=== PATIENT | female | born 1960 | race Hispanic/Latino ===

== ENCOUNTER → 2024-03-09 | Outpatient (REF) | payer MEDICARE | LOC: US 12:26 | PROVIDERS: ATTEND Urology | DX: N39.0 Urinary tract infection, site not specified (principal) | CPT/HCPCS: 74018; 76770; 76857 ==

== ENCOUNTER 2024-07-05 07:44 | Inpatient (IN) | payer MEDICARE ==
[2024-07-02 12:54] LABS: BASOPHILS % 0.7 % (0.0-1.0); EOSINOPHILS # (AUTO) 0.1 (0.0-0.4); EOSINOPHILS % 1.2 % (0.0-6.0); HEMATOCRIT 45.8 % (34.2-44.1); HEMOGLOBIN 15.5 g/dL (12.0-16.0); LYMPHOCYTES # (AUTO) 2.4 (1.0-3.2); LYMPHOCYTES % 39.3 % (18.0-39.1); MEAN CORPUSCULAR HEMOGLOBIN 32.8 pg (28-32); MEAN CORPUSCULAR HGB CONC 33.8 g/dL (31-35); MONOCYTES # (AUTO) 0.5 (0.2-0.8); MONOCYTES % 8.8 % (4.4-11.3); NEUTROPHILS % 49.8 % (38.7-80.0); PLATELET COUNT 209 x10e3/uL (140-360); RED BLOOD COUNT 4.72 x10e6/uL (3.6-5.1); RED CELL DISTRIBUTION WIDTH 12.6 % (11.7-14.4); WHITE BLOOD COUNT 6.01 x10e3/uL (4.8-10.8)
[2024-07-02 13:16] LABS: ANION GAP 12.6 mmol/L (8-16); CALCIUM 9.2 mg/dL (8.4-10.2); CREATININE, SERUM 0.75 mg/dL (0.57-1.11); POTASSIUM 4.6 mmol/L (3.5-5.1)
[~2024-07-05] VITALS: Ht 157.5 cm; Wt 88.0 kg
[~2024-07-05 07:44] MED LIST: AMLODIPINE BESYL5 MG PO; CRESTOR40 MG PO; GABAPENTIN100 MG PO; LEVOTHYROXINE50 MCG PO; LEXAPRO10 MG PO; NITROFURANTOIN100 MG PO; OXYBUTYNIN CHLOR5 M1 PO; OZEMPIC2 MG/0.75 SC
[2024-07-05] MEDS: PIPERACILLIN/TAZOBACTAM 3.375 GM VIAL ONE (12:26)
[2024-07-05] MEDS: GENTAMICIN 80MG/NS 100 ML 200 ML IV ONE (12:26)
[2024-07-05] MEDS: CLINDAMYCIN 600MG / 50ML 50 ML IV ONE (12:27)
[2024-07-05] MEDS: LACTATED RINGER'S 1,000 ML ONE (12:27)
[2024-07-05] MEDS ORDERED: LIDOCAINE HCL 2% LOCAL INJ 5 ML SDV VIAL INJ ONE (16:20)
[2024-07-05] MEDS ORDERED: SUCCINYLCHOLINE CHLORIDE 20 MG/ML 10ML VIAL ONE (16:20)
[2024-07-05] MEDS ORDERED: ROCURONIUM BROMIDE 1 ML IV ONE (16:20)
[2024-07-05] MEDS ORDERED: PROPOFOL IV EMULSION 10 MG/ML 20 ML VIAL ONE (16:21)
[2024-07-05] MEDS ORDERED: FENTANYL CITRATE/PF 100MCG/2 ML INJ ONE (16:21)
[2024-07-05] MEDS ORDERED: ACETAMINOPHEN 1000 MG/100 ML IV PRN (17:45)
[2024-07-05] MEDS ORDERED: DIPHENHYDRAMINE HCL 25 MG CAP PO PRN (17:45)
[2024-07-05] MEDS ORDERED: ONDANSETRON HCL INJ 2MG/ML 2ML 2 MG/ML VIAL IV PRN (17:45)
[2024-07-05] MEDS ORDERED: ACETAMINOPHEN/CODEINE 300MG - 30MG TAB PO PRN (17:45)
[2024-07-05] MEDS ORDERED: HYDROMORPHONE 2MG/ML ONE (18:14)
[2024-07-05] MEDS ORDERED: SUGAMMADEX SODIUM 200 MG/2 ML VIAL IV ONE ×2 (19:05→19:14)
[2024-07-05 20:30] VITALS: BP 128/70; PULSE 71; RESP 18; TEMP 97.5; O2SAT 96
[2024-07-05 23:04] VITALS: BP 128/70; PULSE 71; RESP 18; TEMP 97.5; O2SAT 96
[2024-07-05 23:05] VITALS: BP 128/70; PULSE 71; RESP 18; TEMP 97.5; O2SAT 96
[2024-07-05] MEDS: SODIUM CHLORIDE 0.9% 1000ML 1,000 ML IV SCH (23:41)
[2024-07-06] VITALS (9 sets, daily range): BP systolic 108–123; BP diastolic 58–77; PULSE 64–80; RESP 16–19; TEMP 97.9–98.8; O2SAT 94–99
[2024-07-06] MEDS: ACETAMINOPHEN 1000 MG/100 ML 100 ML IV ONE (00:36)
[2024-07-06 05:32] LABS: BASOPHILS % 0.1 % (0.0-1.0); HEMATOCRIT 38.8 % (34.2-44.1); HEMOGLOBIN 13.2 g/dL (12.0-16.0); LYMPHOCYTES # (AUTO) 0.9 (1.0-3.2); LYMPHOCYTES % 8.4 % (18.0-39.1); MEAN CORPUSCULAR HEMOGLOBIN 32.8 pg (28-32); MEAN CORPUSCULAR VOLUME 96.3 fL (81-99); MONOCYTES # (AUTO) 0.4 (0.2-0.8); MONOCYTES % 3.4 % (4.4-11.3); NEUTROPHILS # (AUTO) 9.7 (2.1-6.9); NEUTROPHILS % 87.8 % (38.7-80.0); PLATELET COUNT 218 x10e3/uL (140-360); RED BLOOD COUNT 4.03 x10e6/uL (3.6-5.1); RED CELL DISTRIBUTION WIDTH 12.7 % (11.7-14.4); WHITE BLOOD COUNT 11.08 x10e3/uL (4.8-10.8)
[2024-07-06 05:55] LABS: ANION GAP 15.7 mmol/L (8-16); CALCIUM 8.6 mg/dL (8.4-10.2); CREATININE, SERUM 0.69 mg/dL (0.57-1.11); POTASSIUM 4.7 mmol/L (3.5-5.1)
[2024-07-06] MEDS ORDERED: DEXTROSE 50% SYRINGE 50 ML IV PRN (08:15)
[2024-07-06] MEDS: LEVOTHYROXINE SODIUM 50 MCG TAB PO SCH (09:42)
[2024-07-06] MEDS: AMLODIPINE BESYLATE 5 MG TAB PO SCH (09:42)
[2024-07-06] MEDS: ESCITALOPRAM OXALATE 10 MG TAB PO SCH (09:42)
[2024-07-06] MEDS: SENNA-S TABLET PO SCH (09:42)
[2024-07-06] MEDS: GABAPENTIN 100 MG CAP PO SCH (09:42)
[2024-07-06] MEDS: PIPERACILLIN/TAZOBACTAM 3.375 GM VIAL ONE (09:43)
[2024-07-06] MEDS: ACETAMINOPHEN 325 MG TAB PO PRN (09:56)
[2024-07-06] MEDS: INSULIN LISPRO 100 UNIT/1 ML 3ML VIAL SQ SCH (11:30)
[2024-07-06] MEDS: PHENAZOPYRIDINE HCL 100 MG TAB PO PRN (13:12)
[2024-07-06] MEDS: MAGNESIUM HYDROXIDE 30 ML UDC PO PRN (13:12)
[2024-07-06] MEDS: CLINDAMYCIN 600MG / 50ML 50 ML IV ONE (18:14)
[2024-07-06] MEDS: CRESTOR 10MG PO SCH (21:29)
[2024-07-06] MEDS: KETOROLAC TROMETHAMINE 30 MG/ML VIAL IV PRN (21:30)
[2024-07-07] VITALS (9 sets, daily range): BP systolic 114–133; BP diastolic 58–66; PULSE 64–79; RESP 18–19; TEMP 97.9–98.5; O2SAT 93–100
[2024-07-07 05:10] LABS: BASOPHILS % 0.2 % (0.0-1.0); EOSINOPHILS # (AUTO) 0.1 (0.0-0.4); EOSINOPHILS % 0.6 % (0.0-6.0); HEMATOCRIT 34.9 % (34.2-44.1); HEMOGLOBIN 11.6 g/dL (12.0-16.0); LYMPHOCYTES # (AUTO) 2.9 (1.0-3.2); LYMPHOCYTES % 28.3 % (18.0-39.1); MEAN CORPUSCULAR HEMOGLOBIN 32.1 pg (28-32); MEAN CORPUSCULAR HGB CONC 33.2 g/dL (31-35); MEAN CORPUSCULAR VOLUME 96.7 fL (81-99); MONOCYTES # (AUTO) 0.8 (0.2-0.8); MONOCYTES % 7.8 % (4.4-11.3); NEUTROPHILS # (AUTO) 6.3 (2.1-6.9); NEUTROPHILS % 62.8 % (38.7-80.0); PLATELET COUNT 193 x10e3/uL (140-360); RED BLOOD COUNT 3.61 x10e6/uL (3.6-5.1); RED CELL DISTRIBUTION WIDTH 13.2 % (11.7-14.4)
[2024-07-07 05:29] LABS: ANION GAP 11.1 mmol/L (8-16); CALCIUM 8.1 mg/dL (8.4-10.2); CREATININE, SERUM 0.63 mg/dL (0.57-1.11); POTASSIUM 4.1 mmol/L (3.5-5.1)
[2024-07-07] MEDS: GABAPENTIN 100 MG CAP PO SCH (08:52)
[2024-07-07] MEDS: HYDROMORPHONE HCL 2 MG TAB PO PRN (13:08)
[2024-07-08] VITALS (8 sets, daily range): BP systolic 119–145; BP diastolic 59–96; PULSE 67–75; RESP 16–20; TEMP 98.1–98.8; O2SAT 95–100
[2024-07-08 07:50] LABS: BASOPHILS % 0.4 % (0.0-1.0); EOSINOPHILS # (AUTO) 0.2 (0.0-0.4); EOSINOPHILS % 2.1 % (0.0-6.0); HEMATOCRIT 36.1 % (34.2-44.1); HEMOGLOBIN 11.9 g/dL (12.0-16.0); LYMPHOCYTES % 33.3 % (18.0-39.1); MEAN CORPUSCULAR HEMOGLOBIN 32.5 pg (28-32); MEAN CORPUSCULAR VOLUME 98.6 fL (81-99); MONOCYTES # (AUTO) 0.8 (0.2-0.8); MONOCYTES % 8.6 % (4.4-11.3); NEUTROPHILS % 55.4 % (38.7-80.0); PLATELET COUNT 187 x10e3/uL (140-360); RED BLOOD COUNT 3.66 x10e6/uL (3.6-5.1); RED CELL DISTRIBUTION WIDTH 13.1 % (11.7-14.4); WHITE BLOOD COUNT 8.97 x10e3/uL (4.8-10.8)
[2024-07-08 08:15] LABS: ANION GAP 12.1 mmol/L (8-16); CALCIUM 8.3 mg/dL (8.4-10.2); CREATININE, SERUM 0.66 mg/dL (0.57-1.11); POTASSIUM 4.1 mmol/L (3.5-5.1)
[2024-07-09 06:13] VITALS: PULSE 85; RESP 20; O2SAT 95
== END 2024-07-08 19:25 | disposition home or self-care (01) | DRG 748 ==
LOC: OR 07:44 → PACU V 15:47 → MED/SURG 20:12
PROVIDERS: ADMIT Urology; ATTEND Urology
PROC: 0T9B70Z Drainage of Bladder with Drainage Device, Via Natural or Artificial Opening (ICD-10-PCS; 2024-07-05)
PROC: BT141ZZ Fluoroscopy of Kidneys, Ureters and Bladder using Low Osmolar Contrast (ICD-10-PCS; 2024-07-05)
PROC: 0JQC0ZZ Repair Pelvic Region Subcutaneous Tissue and Fascia, Open Approach (ICD-10-PCS; principal; 2024-07-05 17:40)
PROC: 0TSD0ZZ Reposition Urethra, Open Approach (ICD-10-PCS; 2024-07-05 17:40)
DX: N81.10 Cystocele, unspecified (principal); E11.42 Type 2 diabetes mellitus with diabetic polyneuropathy; E78.49 Other hyperlipidemia; I10 Essential (primary) hypertension; R31.0 Gross hematuria; R33.9 Retention of urine, unspecified; N39.46 Mixed incontinence; R31.29 Other microscopic hematuria; E66.9 Obesity, unspecified; Z68.36 Body mass index [BMI] 36.0-36.9, adult; Z79.85 Long-term (current) use of injectable non-insulin antidiabetic drugs; Z79.890 Hormone replacement therapy
CPT/HCPCS: 36415; 71046; 80048; 82948; 85025; 93005; 93306; 94799; C1758; C1762; J0330; J1580; J1885; J2003; J2543; J7030

== ENCOUNTER 2024-07-22 18:37 | Emergency (ER) | payer MEDICARE ==
[~2024-07-22] VITALS: Ht 157.5 cm; Wt 88.0 kg
[2024-07-22 18:40] VITALS: PULSE 87; RESP 18; TEMP 98.7; O2SAT 100
[2024-07-22] MEDS: IBUPROFEN 600 MG TAB PO STA (19:27)
[2024-07-22] MEDS: ACETAMINOPHEN 325 MG TAB PO STA (19:27)
[2024-07-22 19:38] VITALS: BP 133/61
== END 2024-07-22 19:35 | disposition home or self-care (01) ==
LOC: ER 18:41
DX: R33.9 Retention of urine, unspecified (principal); R10.30 Lower abdominal pain, unspecified; I10 Essential (primary) hypertension; E03.9 Hypothyroidism, unspecified; E78.5 Hyperlipidemia, unspecified; F32.A Depression, unspecified
CPT/HCPCS: 51700; 87086; 99283

== ENCOUNTER 2024-08-07 10:15 | Emergency (ER) | payer MEDICARE ==
[~2024-08-07] VITALS: Ht 157.5 cm; Wt 88.0 kg
[2024-08-07] MEDS ORDERED: MACROBID 100 M100 MG PO (11:56)
[2024-08-07] MEDS ORDERED: MYRBETRIQ25 MG PO (11:56)
[2024-08-07 12:20] LABS: CLARITY,URINE CLEAR (CLEAR); COLOR,URINE YELLOW (YELLOW); GLUCOSE, URINE NEGATIVE (NEGATIVE); KETONES,URINE NEGATIVE (NEGATIVE); LEUKOCYTE ESTERASE ,URINE NEGATIVE (NEGATIVE); NITRITE,URINE NEGATIVE (NEGATIVE); PH,URINE 7.5 (5 - 7); PROTEIN,URINE DIPSTICK NEGATIVE (NEGATIVE); URINE UROBILINOGEN 0.2 mg/dL (0.2 - 1)
[2024-08-07 12:21] LABS: BILIRUBIN,URINE NEGATIVE (NEGATIVE)
[2024-08-07 12:22] LABS: BACTERIA,URINE FEW /HPF; EPITHELIAL CELLS,URINE FEW /LPF; RBC,URINE 0-5 /HPF (0-5); WBC,URINE (MAN) 0-5 /HPF (0-5)
[2024-08-07 12:58] VITALS: PULSE 60; RESP 18; TEMP 98.7; O2SAT 99
== END 2024-08-07 12:45 | disposition home or self-care (01) ==
LOC: ER 11:06
DX: Z46.6 Encounter for fitting and adjustment of urinary device (principal); I10 Essential (primary) hypertension; E78.5 Hyperlipidemia, unspecified; E03.9 Hypothyroidism, unspecified; F32.A Depression, unspecified
CPT/HCPCS: 81001; 87086; 99283